=== PATIENT | female | born 1935 | race Caucasian/White ===

== ENCOUNTER → 2017-05-25 | Outpatient (CLI) | payer MEDICARE, BC ==
[~2017-05-25] MED LIST: ACET325 PO; CYCL5TAB PO; HYDR-2768 PO; HYDR25TA35 PO; LEVO.1; PREM0.622; RAMI5CAP36 PO; TIMO0.5S29 EACH EYE
[2017-05-25 08:49] LABS: AUTOMATED NEUTROPHIL # 3.1 TH/MM3 (1.8-7.7); BASOPHIL % 0.8 % (0.0-2.0); EOSINOPHIL # 0.2 TH/MM3 (0-0.4); EOSINOPHIL % 3.9 % (0.0-4.0); HEMATOCRIT 34.5 % (35.0-46.0); HEMOGLOBIN 11.9 GM/DL (11.6-15.3); LYMPH % 31.6 % (9.0-44.0); LYMPHOCYTE # 1.8 TH/MM3 (1.0-4.8); MEAN CELL VOLUME 85.9 FL (80.0-100.0); MEAN CORPUSCULAR HEMOGLOBIN 29.6 PG (27.0-34.0); MEAN CORPUSCULAR HGB CONC 34.5 % (32.0-36.0); MONO % 10.3 % (0.0-8.0); MONOCYTE # 0.6 TH/MM3 (0-0.9); NEUT % 53.4 % (16.0-70.0); PLATELET COUNT 268 TH/MM3 (150-450); RED BLOOD COUNT 4.02 MIL/MM3 (4.00-5.30); RED CELL DISTRIBUTION WIDTH 13.7 % (11.6-17.2); WHITE BLOOD COUNT 5.8 TH/MM3 (4.0-11.0)
[2017-05-25 09:14] LABS: ALBUMIN 3.7 GM/DL (3.4-5.0); AST (GOT) 25 U/L (15-37); BLOOD UREA NITROGEN 12 MG/DL (7-18); CALCIUM 8.7 MG/DL (8.5-10.1); CHLORIDE 98 MEQ/L (98-107); GLOMERULAR FILTRATION RATE 96 ML/MIN (>89); GLUCOSE,FASTING 96 MG/DL (74-99); SODIUM (NA) 135 MEQ/L (136-145)
[2017-05-25 09:15] LABS: CHOLESTEROL 215 MG/DL (120-200); TRIGLYCERIDES 131 MG/DL (42-150)
[2017-05-25 09:25] LABS: ALKALINE PHOSPHATASE 38 U/L (45-117); ALT (GPT) 33 U/L (10-53); CHOLESTEROL/ HDL RATIO 2.64 RATIO; HDL CHOLESTEROL 81.4 MG/DL (40.0-60.0); LDL CHOLESTEROL 107 MG/DL (0-99); TOTAL BILIRUBIN ADULT 0.3 MG/DL (0.2-1.0); TOTAL PROTEIN 6.7 GM/DL (6.4-8.2)
[2017-05-25 13:15] LABS: HEMOGLOBIN A1C 5.8 % (4.3-6.0)
== END ==
LOC: CLAB 08:11
PROVIDERS: ATTEND Family Medicine
DX: R73.01 Impaired fasting glucose (principal); E78.5 Hyperlipidemia, unspecified; E03.9 Hypothyroidism, unspecified; I10 Essential (primary) hypertension
CPT/HCPCS: 36415; 80053; 80061; 83036; 84443; 85025

== ENCOUNTER 2017-06-05 14:28 | Emergency (ER) | payer MEDICARE, BC ==
[~2017-06-05] VITALS: Ht 152.4 cm; Wt 65.0 kg
[2017-06-05 14:31] VITALS: BP 218/132; PULSE 94; RESP 15; TEMP 98.3; O2SAT 100
[2017-06-05 14:34] VITALS: BP 214/84
[2017-06-05 15:03] LABS: AUTOMATED NEUTROPHIL # 8.7 TH/MM3 (1.8-7.7); BASOPHIL % 0.3 % (0.0-2.0); EOSINOPHIL # 0.2 TH/MM3 (0-0.4); EOSINOPHIL % 1.7 % (0.0-4.0); HEMATOCRIT 36.1 % (35.0-46.0); HEMOGLOBIN 12.6 GM/DL (11.6-15.3); LYMPH % 18.7 % (9.0-44.0); LYMPHOCYTE # 2.3 TH/MM3 (1.0-4.8); MEAN CELL VOLUME 85.3 FL (80.0-100.0); MEAN CORPUSCULAR HEMOGLOBIN 29.7 PG (27.0-34.0); MEAN CORPUSCULAR HGB CONC 34.9 % (32.0-36.0); MEAN PLATELET VOLUME 7.1 FL (7.0-11.0); MONO % 7.4 % (0.0-8.0); MONOCYTE # 0.9 TH/MM3 (0-0.9); NEUT % 71.9 % (16.0-70.0); PLATELET COUNT 286 TH/MM3 (150-450); RED BLOOD COUNT 4.23 MIL/MM3 (4.00-5.30); RED CELL DISTRIBUTION WIDTH 13.5 % (11.6-17.2); WHITE BLOOD COUNT 12.1 TH/MM3 (4.0-11.0)
[2017-06-05 15:08] LABS: BACTERIA, URINE RARE /hpf; BILIRUBIN, URINE NEG (NEG); BLOOD, URINE NEG (NEG); GLUCOSE,URINE NEG (NEG); KETONE, URINE NEG (NEG); MUCUS URINE FEW /lpf (OCC); NITRITE,URINE NEG (NEG); SQUAMOUS EPITHELIAL CELL URINE 4 /hpf (0-5); URINE COLOR YELLOW (YELLW/STRAW); URINE LEUKOCYTE ESTERASE NEG (NEG)
[2017-06-05 15:16] LABS: ALBUMIN 3.8 GM/DL (3.4-5.0); ALT (GPT) 33 U/L (10-53); AST (GOT) 27 U/L (15-37); BICARBONATE 30.9 MEQ/L (21.0-32.0); BLOOD UREA NITROGEN 13 MG/DL (7-18); CALCIUM 9.1 MG/DL (8.5-10.1); CHLORIDE 95 MEQ/L (98-107); CREATININE 0.73 MG/DL (0.50-1.00); GLOMERULAR FILTRATION RATE 76 ML/MIN (>89); GLUCOSE,RANDOM 131 MG/DL (74-106); SODIUM (NA) 132 MEQ/L (136-145)
[2017-06-05 15:19] LABS: ALKALINE PHOSPHATASE 53 U/L (45-117); TOTAL BILIRUBIN ADULT 0.3 MG/DL (0.2-1.0); TOTAL PROTEIN 7.4 GM/DL (6.4-8.2)
[2017-06-05] MEDS ORDERED: SODIUM CHLOR 0.9% 1000 ML INJ 1,000 ML IV SCH (16:42)
[2017-06-05] MEDS ORDERED: SODIUM CHLORIDE 0.9% FLUSH 10 ML FLUSH IV FLUSH PRN (16:45)
[2017-06-05] MEDS ORDERED: ONDANSETRON HCL 4 MG/2 ML VIAL IVP ONE (16:45)
[2017-06-05] MEDS ORDERED: MORPHINE SULFATE 4 MG/ML INJ IV PUSH ONE (16:45)
--- NOTE | 2017-06-05 16:48 | PD ---
HPI Chief Complaint: Abdominal Pain Time Seen by Provider: 16:36 Travel History International Travel<30 days: No Contact w/Intl Traveler<30days: No Traveled to known affect area: No History of Present Illness HPI 81-year-old female arrives describing 3 days of pelvic pain. She states it feels as though something is falling in the pelvis. No nausea vomiting or fever. Bowel bladder habits have been normal. No exacerbating factor. Timing is intermittent. Severity is moderate. She reports a history of prolapsed bladder status post surgical repair without incident/complication as well as bilateral salpingo-oophorectomy also without complication. PFSH Past Medical History Cancer: Yes (SKIN CANCER) Cardiovascular Problems: Yes (HTN) Chemotherapy: No Diminished Hearing: No Endocrine: No Genitourinary: No Hypertension: Yes Immune Disorder: No Musculoskeletal: No Neurologic: No Psychiatric: No Respiratory: No Radiation Therapy: No Past Surgical History Genitourinary Surgery: Yes Gynecologic Surgery: Yes Hysterectomy: Yes Social History Alcohol Use: Yes (occ) Tobacco Use: No Substance Use: No Allergies-Medications (Allergen,Severity, Reaction): Coded Allergies: penicillin G (Unverified Allergy, Mild, HIVES, 11/16/16) latex (Unverified Adverse Reaction, Severe, 11/16/16) Reported Meds & Prescriptions Reported Meds & Active Scripts Active Hydrocodone-Acetaminophen 5-325 mg Tab 1 Tab PO Q6H PRN Flagyl (Metronidazole) 500 Mg Tab 500 Mg PO TID 10 Days Cipro (Ciprofloxacin HCl) 500 Mg Tab 500 Mg PO BID 10 Days Reported Aspirin 325 Mg Tab 325 Mg PO DAILY Hydralazine HCl 25 Mg Tablet 25 Mg PO BID Ramipril 5 Mg Cap 5 Mg PO DAILY Hydrochlorothiazide 25 Mg Tab 25 Mg PO DAILY Premarin (Estrogens Conjugated) 0.625 Mg Tab 0.625 Mg PO DAILY Synthroid (Levothyroxine Sodium) 100 Mcg Tab 100 Mcg PO DAILY Review of Systems Except as stated in HPI: all other systems reviewed are Neg General / Constitutional: No: Fever Physical Exam Narrative GENERAL: 81-year-old female pleasant well-nourished well-developed Vital Signs Date Time Temp Pulse Resp B/P (MAP) Pulse Ox O2 Delivery O2 Flow Rate FiO2 06/05/17 14:34 214/84 (127) 06/05/17 14:31 98.3 94 15 218/132 (160) 100 Hypertension noted SKIN: Warm and dry. HEAD: Atraumatic. Normocephalic. EYES: Pupils equal and round. No scleral icterus. No injection or drainage. ENT: No nasal bleeding or discharge. Mucous membranes pink and moist. NECK: Trachea midline. No JVD. CARDIOVASCULAR: Regular rate and rhythm. RESPIRATORY: No accessory muscle use. Clear to auscultation. Breath sounds equal bilaterally. GASTROINTESTINAL: Abdomen soft, non-tender, nondistended. Hepatic and splenic margins not palpable. MUSCULOSKELETAL: Extremities without clubbing, cyanosis, or edema. No obvious deformities. NEUROLOGICAL: Awake and alert. No obvious cranial nerve deficits. Motor grossly within normal limits. Five out of 5 muscle strength in the arms and legs. Normal speech. PSYCHIATRIC: Appropriate mood and affect; insight and judgment normal. Data Data Last Documented VS Vital Signs Date Time Temp Pulse Resp B/P (MAP) Pulse Ox O2 Delivery O2 Flow Rate FiO2 06/05/17 19:03 06/05/17 19:00 82 16 97 Room Air 06/05/17 14:31 98.3 Orders Orders Complete Blood Count With Diff (06/05/17 14:34) Comprehensive Metabolic Panel (06/05/17 14:34) Urinalysis - C+S If Indicated (06/05/17 14:34) Lipase (06/05/17 14:34) Ct Abd/Pel W Iv Contrast(Rout) (06/05/17 16:42) Iv Access Insert/Monitor (06/05/17 16:42) Ecg Monitoring (06/05/17 16:42) Oximetry (06/05/17 16:42) Morphine Inj (Morphine Inj) (06/05/17 16:45) Ondansetron Inj (Zofran Inj) (06/05/17 16:45) Sodium Chlor 0.9% 1000 Ml Inj (Ns 1000 M (06/05/17 16:42) Sodium Chloride 0.9% Flush (Ns Flush) (06/05/17 16:45) Iohexol 350 Inj (Omnipaque 350 Inj) (06/05/17 17:44) Ed Discharge Order (06/05/17 18:09) Ciprofloxacin (Cipro) (06/05/17 18:45) Metronidazole (Flagyl) (06/05/17 18:45) Acetamin-Hydrocod 325-5 Mg ([place] 5-325 (06/05/17 18:45) Ondansetron Odt (Zofran Odt) (06/05/17 18:45) Labs Laboratory Tests Test 06/05/17 14:42 White Blood Count 12.1 TH/MM3 Red Blood Count 4.23 MIL/MM3 Hemoglobin 12.6 GM/DL Hematocrit 36.1 % Mean Corpuscular Volume 85.3 FL Mean Corpuscular Hemoglobin 29.7 PG Mean Corpuscular Hemoglobin Concent 34.9 % Red Cell Distribution Width 13.5 % Platelet Count 286 TH/MM3 Mean Platelet Volume 7.1 FL Neutrophils (%) (Auto) 71.9 % Lymphocytes (%) (Auto) 18.7 % Monocytes (%) (Auto) 7.4 % Eosinophils (%) (Auto) 1.7 % Basophils (%) (Auto) 0.3 % Neutrophils # (Auto) 8.7 TH/MM3 Lymphocytes # (Auto) 2.3 TH/MM3 Monocytes # (Auto) 0.9 TH/MM3 Eosinophils # (Auto) 0.2 TH/MM3 Basophils # (Auto) 0.0 TH/MM3 CBC Comment DIFF FINAL Differential Comment Urine Color YELLOW Urine Turbidity CLEAR Urine pH 7.0 Urine Specific [place] 1.018 Urine Protein NEG mg/dL Urine Glucose (UA) NEG mg/dL Urine Ketones NEG mg/dL Urine Occult Blood NEG Urine Nitrite NEG Urine Bilirubin NEG Urine Urobilinogen LESS THAN 2.0 MG/DL Urine Leukocyte Esterase NEG Urine RBC 1 /hpf Urine WBC LESS THAN 1 /hpf Urine Squamous Epithelial Cells 4 /hpf Urine Bacteria RARE /hpf Urine Mucus FEW /lpf Microscopic Urinalysis Comment CULT NOT INDICATED Blood Urea Nitrogen 13 MG/DL Creatinine 0.73 MG/DL Random Glucose 131 MG/DL Total Protein 7.4 GM/DL Albumin 3.8 GM/DL Calcium Level 9.1 MG/DL Alkaline Phosphatase 53 U/L Aspartate Amino Transf (AST/SGOT) 27 U/L Alanine Aminotransferase (ALT/SGPT) 33 U/L Total Bilirubin 0.3 MG/DL Sodium Level 132 MEQ/L Potassium Level 3.4 MEQ/L Chloride Level 95 MEQ/L Carbon Dioxide Level 30.9 MEQ/L Anion Gap 6 MEQ/L Estimat Glomerular Filtration Rate 76 ML/MIN Lipase 87 U/L [facility] Medical Decision Making Medical Screen Exam Complete: Yes Emergency Medical Condition: Yes Medical Record Reviewed: Yes Differential Diagnosis Constipation, Gastritis, Acute Cholecystitis, Biliary Colic, Pancreatitis, HERNANDEZ , Hepatitis, Bowel Obstruction, Cystitis, Mesenteric Ischemia, AAA, Appendicitis , Renal Stone/Hydronephrosis, GERD, perforated viscous Narrative Course CBC & BMP Diagram 06/05/17 14:42 Total Protein 7.4, Albumin 3.8, Calcium Level 9.1, Alkaline Phosphatase 53, Aspartate Amino Transf (AST/SGOT) 27, Alanine Aminotransferase (ALT/SGPT) 33, Total Bilirubin 0.3 CT reveals focal mural thickening of the lower sigmoid concerning for diverticulitis. Underlying neoplastic process is not entirely excluded and this was discussed with the patient verbalized agreement to follow-up with gastroenterology. She is really very well-appearing. At 6:00 PM she noted to the bathroom without difficulty and ambulated back. No difficulty tolerating oral intake and for that reason we'll send her home with Cipro and Flagyl. Short course of Lortab will confer some interval analgesia. Diagnosis Primary Impression: Diverticulitis Additional Impression: Mural thickening of colon Referrals: Kim Tripathi MD 2 days Med/Other Pt SpecificInfo: Prescription(s) given Scripts Hydrocodone-Acetaminophen (Hydrocodone-Acetaminophen) 5-325 mg Tab 1 TAB PO Q6H Y for PAIN SCALE 6 TO 10, #12 TAB 0 Refills Prov: Ralph Dozier MD 06/05/17 Metronidazole (Flagyl) 500 Mg Tab 500 MG PO TID for Infection for 10 Days, TAB 0 Refills Prov: Ralph Dozier MD 06/05/17 Ciprofloxacin (Cipro) 500 Mg Tab 500 MG PO BID for Infection for 10 Days, #20 TAB 0 Refills Prov: Ralph Dozier MD 06/05/17 Disposition: 01 DISCHARGE HOME Condition: Stable Ralph Dozier MD Jun 05, 2017 16:48
[2017-06-05] MEDS ORDERED: HYDR-3799 PO (17:15)
[2017-06-05] MEDS ORDERED: ESTR.625 PO (17:15)
[2017-06-05] MEDS ORDERED: ASPI-183 PO (17:15)
[2017-06-05] MEDS ORDERED: LEVO.1 PO (17:15)
[2017-06-05] MEDS ORDERED: RAMI5CAP PO (17:15)
[2017-06-05] MEDS ORDERED: HYDR25TA5 PO (17:15)
[2017-06-05] MEDS ORDERED: IOHEXOL 350 MG/ML 10 ML VIAL (for RAD DIAG) IVCONTRAST ONE (17:44)
--- NOTE | 2017-06-05 17:58 | RADRPT ---
EXAM DATE/TIME: 06/05/2017 17:32 [place] COMPARISON: No previous studies available for comparison. INDICATIONS : Diffuse low abdomen pain. IV CONTRAST: 85 cc Omnipaque 350 (iohexol) IV ORAL CONTRAST: No oral contrast ingested. RADIATION DOSE: 6.64 CTDIvol (mGy) MEDICAL HISTORY : Cardiovascular disease. Hypertension. Ovarian cyst, per patient SURGICAL HISTORY : Partial hysterectomy ENCOUNTER: Initial ACUITY: 3 days PAIN SCALE: 7/10 LOCATION: Bilateral lower abdomen/pelvis TECHNIQUE: Volumetric scanning of the abdomen and pelvis was performed. Using automated exposure control and ad justment of the mA and/or kV according to patient size, radiation dose was kept as low as reasonably achievable to obtain optimal diagnostic quality images. DICOM format image data is available electro nically for review and comparison. FINDINGS: There is focal mural thickening in the distal sigmoid colon with perisigmoid inflammatory changes and probable diverticulum present. Findings most characteristic of acute diverticulitis. There is also a 3.4 cm left-sided adnexal cyst. Trace free fluid. No free air. No bowel obstruction. Lung bases are clear. Mild fatty liver. Spleen, adrenals, kidneys and pancreas demonstrate no acute f indings. No calcified gallstones. No acute bony abnormalities. CONCLUSION: 1. Focal mural thickening of the distal sigmoid colon with inflammatory changes and diverticulum most characteristic of acute diverticulitis. No abscess, obstruction. Trace free fluid. No free air. 2. 3.4 cm left-sided ovarian cyst. Gama Ortiz MD on June 05, 2017 at 17:52 Board Certified Radiologist. This report was verified electronically.
[2017-06-05] MEDS ORDERED: CIPR-9 PO (18:03)
[2017-06-05] MEDS ORDERED: HYDR-3516 PO (18:03)
[2017-06-05] MEDS ORDERED: METR-1 PO (18:03)
[2017-06-05] MEDS ORDERED: ACETAMINOPHEN/HYDROcodone 325 MG/5 MG TAB PO ONE (18:45)
[2017-06-05] MEDS ORDERED: CIPROFLOXACIN 500 MG TAB PO ONE (18:45)
[2017-06-05] MEDS ORDERED: ONDANSETRON ODT 4 MG TAB PO ONE (18:45)
[2017-06-05] MEDS ORDERED: metroNIDAZOLE 500 MG TAB PO ONE (18:45)
[2017-06-05 19:00] VITALS: BP 182/82; PULSE 82; RESP 16; O2SAT 97
== END 2017-06-05 19:36 | disposition home or self-care (01) ==
LOC: NEPE 14:28
DX: K57.92 Diverticulitis of intestine, part unspecified, without perforation or abscess without bleeding (principal); I10 Essential (primary) hypertension
CPT/HCPCS: 74177; 80053; 81001; 83690; 85025; 96361; 96374; 96375; 99284; J2270; J2405; J7030; Q9967

== ENCOUNTER 2017-09-09 10:53 | Emergency (ER) | payer MEDICARE, BC ==
[~2017-09-09] VITALS: Ht 154.9 cm; Wt 70.0 kg
[~2017-09-09 10:53] MED LIST changes: -ACET325 PO; +ASPI-183 PO; +CIPR-9 PO; -CYCL5TAB PO; +ESTR.625 PO; -HYDR-2768 PO; +HYDR-3516 PO; +HYDR-3799 PO; -HYDR25TA35 PO; +HYDR25TA5 PO; -LEVO.1; +LEVO.1 PO; +METR-1 PO; -PREM0.622; +RAMI5CAP PO; -RAMI5CAP36 PO; -TIMO0.5S29 EACH EYE
[2017-09-09 11:00] VITALS: BP 166/74; PULSE 76; RESP 16; TEMP 98; O2SAT 98
[2017-09-09] MEDS ORDERED: LIDOCAINE 1%/EPINEPHrine 1:100,000 SOLN 50 ML VIAL INFIL ONE (11:45)
[2017-09-09] MEDS ORDERED: LIDOCAINE 1%/EPINEPHrine 1:100,000 SOLN 20 ML VIAL INFIL ONE (11:45)
[2017-09-09] MEDS ORDERED: TETANUS/DIPHTHERIA TOXOID ADULT 0.5 ML VIAL IM ONE (11:45)
--- NOTE | 2017-09-09 12:21 | PD ---
HPI Chief Complaint: Laceration/Skin Injury Time Seen by Provider: 11:12 Travel History International Travel<30 days: No Contact w/Intl Traveler<30days: No Traveled to known affect area: No History of Present Illness HPI 81-year-old female presents to the emergency department with an accidental laceration to the right lateral calf from a lawn cutting instrument, that was hanging on the wall in the garage and was knocked down hitting her leg. Patient had fairly good amount of bleeding, which is controlled with ice, elevation, and a towel wrapped around it. She is unsure of her last tetanus shot. Pain is 3 out of 10. She has no other injuries. She is allergic to penicillin and latex. [facility] Past Medical History Cancer: Yes (SKIN CANCER removal) Cardiovascular Problems: Yes (HTN) Chemotherapy: No Diminished Hearing: No Endocrine: No Genitourinary: No Hypertension: Yes Immune Disorder: No Musculoskeletal: No Neurologic: No Psychiatric: No Respiratory: No Radiation Therapy: No Thyroid Disease: Yes Influenza Vaccination: No ?: Not Past Surgical History Genitourinary Surgery: Yes (bladder repair) Gynecologic Surgery: Yes Hysterectomy: Yes Other Surgery: Yes Social History Alcohol Use: Yes (occ) Tobacco Use: No Substance Use: No Allergies-Medications (Allergen,Severity, Reaction): Coded Allergies: penicillin G (Unverified Allergy, Mild, HIVES, 09/09/17) latex (Unverified Adverse Reaction, Severe, 09/09/17) Reported Meds & Prescriptions Reported Meds & Active Scripts Active Reported Aspirin 325 Mg Tab 325 Mg PO DAILY Hydralazine HCl 25 Mg Tablet 25 Mg PO TID Ramipril 5 Mg Cap 10 Mg PO DAILY Hydrochlorothiazide 25 Mg Tab 25 Mg PO DAILY Premarin (Estrogens Conjugated) 0.625 Mg Tab 0.625 Mg PO DAILY Synthroid (Levothyroxine Sodium) 100 Mcg Tab 100 Mcg PO DAILY Review of Systems Except as stated in HPI: all other systems reviewed are Neg General / Constitutional: No: Fever Eyes: No: Visual changes HENT: No: Headaches Cardiovascular: No: Chest Pain or Discomfort Respiratory: No: Shortness of Breath Gastrointestinal: No: Abdominal Pain Genitourinary: No: Dysuria Musculoskeletal: No: Pain Skin: Positive Lesions, No Rash Neurologic: No: Weakness Psychiatric: No: Depression Endocrine: No: Polydipsia Hematologic/Lymphatic: No: Easy Bruising Physical Exam Narrative GENERAL: Patient appears in mild distress. SKIN: Warm and dry. Normal color. Normal turgor. Patient is obvious jagged full-thickness laceration to the right lateral almonte which is not affect the underlying muscle layers. Bleeding is controlled. HEAD: Atraumatic. Normocephalic. EYES: Pupils equal and round. No scleral icterus. No injection or drainage. ENT: No nasal bleeding or discharge. Mucous membranes pink and moist. Pharynx is clear. Airways patent NECK: Trachea midline. Supple and nontender. CARDIOVASCULAR: Regular rate and rhythm. RESPIRATORY: No accessory muscle use. Clear to auscultation. Breath sounds equal bilaterally. MUSCULOSKELETAL: Extremities without clubbing, cyanosis, or edema. No obvious deformities. NEUROLOGICAL: Awake and alert. No obvious cranial nerve deficits. Motor grossly within normal limits. Five out of 5 muscle strength in the arms and legs. Normal speech. PSYCHIATRIC: Appropriate mood and affect; insight and judgment normal. Data Data Last Documented VS Vital Signs Date Time Temp Pulse Resp B/P (MAP) Pulse Ox O2 Delivery O2 Flow Rate FiO2 09/09/17 11:00 98.0 76 16 166/74 (104) 98 Orders Orders Lidocai-Epi 1%-1:100,000 Inj (Xylocaine- (09/09/17 11:45) Tetanus/Diphtheria Tox Adult (Tetanus/Di (09/09/17 11:45) Lidocai-Epi 1%-1:100,000 Inj (Xylocaine- (09/09/17 11:45) MDM Medical Decision Making Medical Screen Exam Complete: Yes Emergency Medical Condition: Yes Differential Diagnosis Accidental laceration. Need for closure. Need for tetanus. Narrative Course Laceration is cleansed and sutured. See procedure note. Patient is given tetanus 0.5 mg IM. Patient will be sent home on Keflex 500 mg 3 times daily for 7 days. Patient should stay off the left leg as much as possible for the next couple of days, apply ice frequently, and keep it elevated. Recommend wound check in 2 days. Recommend sutures stay in place for 14 days. Patient can take Tylenol as needed for pain. Patient can return sooner as needed. Procedures Procedure Narrative LACERATION LOCATION: Right middle lateral calf LENGTH: 6 cm NUMBER OF STITCHES/KARY: 7 interrupted simple sutures, 6 interrupted horizontal sutures REPAIR: The area of the laceration was prepped with Betadine and sterilely draped. The laceration was infiltrated with 5 mL's 1% lidocaine with epi. The wound was copiously irrigated and explored without evidence of foreign body, tendon injury or neurovascular injury. The wound was closed using 4-0 Prolene and 5-0 Ethilon. This was a single layer repair. A sterile dressing was applied. The patient was advised to keep the dressing clean and dry. Patient tolerated the procedure well. Diagnosis Primary Impression: Laceration of right calf without complication Qualified Codes: S81.811A - Laceration without foreign body, right lower leg, initial encounter Patient Instructions: Care For Your Stitches (ED), General Instructions Additional Instructions: Laceration is cleansed and sutured. See procedure note. Patient is given tetanus 0.5 mg IM. Patient will be sent home on Keflex 500 mg 3 times daily for 7 days. Patient should stay off the left leg as much as possible for the next couple of days, apply ice frequently, and keep it elevated. Recommend wound check in 2 days. Recommend sutures stay in place for 14 days. Patient can take Tylenol as needed for pain. Patient can return sooner as needed. Med/Other Pt SpecificInfo: Wound Care Disposition: 01 DISCHARGE HOME Condition: Stable Lazaro Mullen Sep 09, 2017 12:21
[2017-09-09] MEDS ORDERED: CEPH-460 PO (13:15)
== END 2017-09-09 13:26 | disposition home or self-care (01) ==
LOC: NEPD 10:53
DX: S81.811A Laceration without foreign body, right lower leg, initial encounter (principal); W45.8XXA Other foreign body or object entering through skin, initial encounter; Z23 Encounter for immunization
CPT/HCPCS: 12002; 90471; 90714

== ENCOUNTER 2017-09-11 12:30 | Emergency (ER) | payer MEDICARE, BC ==
[~2017-09-11 12:30] MED LIST changes: +CEPH-460 PO
[2017-09-11 12:48] VITALS: BP 193/84; PULSE 75; RESP 16; TEMP 97.8; O2SAT 96
--- NOTE | 2017-09-11 13:22 | PD ---
HPI Chief Complaint: Wound/Suture/Staple Re-Check Time Seen by Provider: 13:20 Travel History International Travel<30 days: No Contact w/Intl Traveler<30days: No Traveled to known affect area: No History of Present Illness HPI 81-year-old female presents emergency department for reevaluation of a laceration sustained to the lateral aspect of the right distal lower extremity. This happened 2 days ago. She states she was instructed to return in 2 days for reevaluation. She has been taking her antibiotic as instructed. She states the area is still painful. It is a constant, awareness, but is tolerable. She denies any fever chills. She does believe the area is little swollen. She has not yet changed the dressing, because she states she did not know she could. She has no other symptoms to report at this time. PFSH Past Medical History Cancer: Yes (SKIN CANCER removal) Cardiovascular Problems: Yes (HTN) Chemotherapy: No Diminished Hearing: No Endocrine: No Genitourinary: No Hypertension: Yes Immune Disorder: No Musculoskeletal: No Neurologic: No Psychiatric: No Respiratory: No Radiation Therapy: No Thyroid Disease: Yes Past Surgical History Genitourinary Surgery: Yes (bladder repair) Gynecologic Surgery: Yes Hysterectomy: Yes Other Surgery: Yes Social History Alcohol Use: Yes (occ) Tobacco Use: No Substance Use: No Allergies-Medications (Allergen,Severity, Reaction): Coded Allergies: penicillin G (Unverified Allergy, Mild, HIVES, 09/09/17) latex (Unverified Adverse Reaction, Severe, 09/09/17) Reported Meds & Prescriptions Reported Meds & Active Scripts Active Keflex (Cephalexin) 500 Mg Capsule 500 Mg PO Q8H 7 Days Reported Aspirin 325 Mg Tab 325 Mg PO DAILY Hydralazine HCl 25 Mg Tablet 25 Mg PO TID Ramipril 5 Mg Cap 10 Mg PO DAILY Hydrochlorothiazide 25 Mg Tab 25 Mg PO DAILY Premarin (Estrogens Conjugated) 0.625 Mg Tab 0.625 Mg PO DAILY Synthroid (Levothyroxine Sodium) 100 Mcg Tab 100 Mcg PO DAILY Review of Systems Except as stated in HPI: all other systems reviewed are Neg Physical Exam Narrative GENERAL: Well-nourished, well-developed elderly female patient, no acute distress SKIN: Focused skin assessment warm/dry. Laceration to the right distal lower extremity well approximated. Sutures are in place. There is no significant erythema or edema. There is no drainage. HEAD: Normocephalic. EYES: No scleral icterus. No injection or drainage. NECK: Supple, trachea midline. No JVD or lymphadenopathy. CARDIOVASCULAR: Regular rate and rhythm without murmurs, gallops, or rubs. RESPIRATORY: Breath sounds equal bilaterally. No accessory muscle use. MUSCULOSKELETAL: No cyanosis. Trace edema of the right distal lower extremity distal pulses are palpable. BACK: Nontender without obvious deformity. No CVA tenderness. Data Data Last Documented VS Vital Signs Date Time Temp Pulse Resp B/P (MAP) Pulse Ox O2 Delivery O2 Flow Rate FiO2 09/11/17 12:48 97.8 75 16 193/84 (120) 96 Orders Orders Ed Discharge Order (09/11/17 13:21) [facility] Medical Decision Making Medical Screen Exam Complete: Yes Emergency Medical Condition: Yes Medical Record Reviewed: Yes Differential Diagnosis Wound recheck versus wound dehiscence versus infected wound Narrative Course 81-year-old female presents emergency department for evaluation of a right leg laceration. The wound appears to be well approximated. I have counseled her on care. I change the dressing. I encouraged her to continue with her oral antibiotics and to elevate lower extremity. I also instructed her to follow-up with her primary care provider. She agrees to return immediately with acute worsening symptoms. Diagnosis Primary Impression: Leg laceration Qualified Codes: S81.811D - Laceration without foreign body, right lower leg, subsequent encounter Referrals: Primary Care Physician Patient Instructions: Acute Wound Care (DC), General Instructions Additional Instructions: Wash the area with soap and water two times a day Let dry before applying dressing Follow up with primary care provider Continue antibiotics as prescribed Med/Other Pt SpecificInfo: No Change to Meds Disposition: 01 DISCHARGE HOME Condition: Stable SandovalSasha dias LUCIA Sep 11, 2017 13:22
== END 2017-09-11 13:40 | disposition home or self-care (01) ==
LOC: NEPK 12:30
DX: S81.811D Laceration without foreign body, right lower leg, subsequent encounter (principal); Z48.00 Encounter for change or removal of nonsurgical wound dressing; I10 Essential (primary) hypertension; Z85.828 Personal history of other malignant neoplasm of skin; Z88.0 Allergy status to penicillin; Z79.2 Long term (current) use of antibiotics; Z79.899 Other long term (current) drug therapy
CPT/HCPCS: 99281